=== PATIENT | male | born 1985 | race Caucasian/White ===

== ENCOUNTER 2018-04-22 15:38 | Emergency (ER) | payer OTHER ==
[~2018-04-22] VITALS: Ht 177.8 cm; Wt 77.1 kg
== END 2018-04-22 18:11 | disposition home or self-care (01) ==
LOC: ER 15:38
DX: R10.84 Generalized abdominal pain (principal)

== ENCOUNTER 2018-10-26 23:35 | Emergency (ER) | payer OTHER ==
[~2018-10-26] VITALS: Ht 177.8 cm; Wt 78.5 kg
[2018-10-27] MEDS ORDERED: KETO10TA2 PO (02:28)
== END 2018-10-27 | disposition home or self-care (01) ==
LOC: ER 23:35
DX: M94.0 Chondrocostal junction syndrome [Tietze] (principal)